=== PATIENT | female | born 1975 | race Caucasian/White ===

== ENCOUNTER 2016-08-09 06:46 | Day surgery (SDC) | payer BC ==
[~2016-08-09 06:46] MED LIST: Lactated Ringers 1,000 ML IV SCH; Lidocaine 1%/Sod Bicarbonate in NS 8.4% 1 ML Syringe IV PRN; Sodium Chloride 0.9% 10 ML Syringe FLUSH PRN
[2016-08-09] MEDS ORDERED: Bupivacaine 0.5% 30 ML SDV ONE (07:03)
--- NOTE | 2016-08-09 07:25 | PCM.PREANE ---
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 symptoms Respiratory: Reports: no symptoms Cardiovascular: Reports: no symptoms GI: Reports: no symptoms Other: Reports: none - PHYSICAL ASSESSMENT HR: 73 O2 Sat by Pulse Oximetry: 96 RR: 16 BP: 108/77 Temp: 36.6 C Height: 1.63 m Weight: 58.513 kg NPO Status Date: 08/08/16 NPO Status Time: 00:00 ASA Class: 2 Mental Status: alert & oriented x3 Airway Class: Mallampati = 1 Dentition: Reports: normal dentition Thyro-Mental Finger Breadths: 3 Mouth Opening Finger Breadths: 3 ROM/Head Extension: full Respiratory Status: lungs clear to auscultation bilaterally Cardiovascular Status: regular rate & rhythm, normal S1, S2, no murmur, blood pressure WNL - ALLERGIES Allergies/Adverse Reactions: Allergies Allergy/AdvReac Type Severity Reaction Status Date / Time Penicillins Allergy Intermediate Hives Verified 08/06/16 14:14 Sulfa (Sulfonamide Allergy Intermediate Hives Verified 08/06/16 14:14 Antibiotics) hydrocodone AdvReac Chest Verified 08/06/16 14:14 Presssure - BLOOD Blood Available: Yes Product(s) Available: PRBC - ANESTHESIA PLAN Preop Beta Dwight: No Anesthesia Type Planned: general anesthesia - ACKNOWLEDGEMENTS Pt an appropriate candidate for the planned anesthesia: Yes Alternatives and risks of anesthesia discussed w pt/guardian: Yes Pt/Guardian understands and agree with anesthesia plan: Yes PreAnesthesia Questionnaire - Past Health History Medical/Surgical History: Denies Medical/Surgical History HEENT History: Reports: Impaired vision Other HEENT History: wears eye glasses Other Cardiovascular History: mitral valve prolapse Respiratory History: Reports: None Gastrointestinal History: Reports: Other (see below) Other Gastrointestinal History: occassional constipation Genitourinary History: Reports: None, Other (see below) Other Genitourinary History: hesitency of micturation, pelvic pain 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 History: Reports: Endometriosis, Musculoskeletal History: Reports: None Neurological History: Reports: Migraines Psychiatric History: Reports: Anxiety, Depression, Emotional problems Endocrine/Metabolic History: Reports: None Hematologic History: Reports: None Immunologic History: Reports: None Oncologic (Cancer) History: Reports: None Dermatologic History: Reports: None - Infectious Disease History Infectious Disease History: Reports: Extended spectrum beta-lactamase (ESBL) - Past Surgical History Head Surgeries/Procedures: Reports: None HEENT Surgical History: Reports: Naso-sinus surgery GI Surgical History: Reports: Cholecystectomy, Colonoscopy Female Surgical History: Reports: Breast implant, Hysterectomy Other Female Surgeries/Procedures: laparoscopy x 23 Neurological Surgical History: Reports: Other (see below) Other Neurological Surgeries/Procedures: botox injections for migraine Musculoskeletal Surgical History: Reports: Arthroscopic knee - SUBSTANCE USE Smoking Status *Q: Current Every Day Smoker Tobacco Use Within Last Twelve Months: Cigarettes Second Hand Smoke Exposure: No Days Per Week of Alcohol Use: 0 Number of Drinks Per Day: 2 Total Drinks Per Week: 0 Recreational Drug Use History: No - HOME MEDS Home Medications: Home Meds Naproxen [Naprosyn] 500 mg PO BID PRN 12/11/14 [History] Venlafaxine [Effexor XR] 150 mg PO QPM 12/11/14 [History] Venlafaxine [Effexor XR] 75 mg PO DAILY 04/08/15 [History] HYDROmorphone HCl [Dilaudid] 3 mg RECTAL DAILY PRN 09/26/15 [History] Ketorolac [Toradol] 30 mg IM Q6H PRN 09/26/15 [History] Estrogens, Conjugated [Premarin] 1 tab PO BID 03/11/16 [History] Gabapentin [Neurontin] 600 mg PO BEDTIME 03/11/16 [History] Acetaminophen with Codeine [Tylenol with Codeine #3 Tablet] 1 tab PO Q8H PRN 08/20 [History] Colestipol [Colestipol HCl] 1 g PO ASDIRECTED PRN 08/06/16 [History] Ondansetron [Zofran ODT] 8 mg PO Q6H PRN 08/06/16 [History] - CURRENT (IN HOUSE) MEDS Current Meds: Current Medications Lactated Ringer's (Ringers, Lactated) 1,000 mls @ 125 mls/hr IV ASDIRECTED SHIVAM Stop: 08/09/16 23:00 Lidocaine/Sodium Bicarbonate (Buffered Lidocaine 1% In Ns 8.4%) 0.25 ml IV ONETIME PRN PRN Reason: Prior to IV Start Stop: 08/09/16 18:00 Sodium Chloride (Saline Flush) 10 ml FLUSH ASDIRECTED PRN PRN Reason: Keep Vein Open Stop: 08/09/16 18:00 Discontinued Medications Bupivacaine HCl (Marcaine 0.5%) Confirm Administered Dose 30 ml .ROUTE .STK-MED ONE Stop: 08/09/16 07:04
[2016-08-09] MEDS ORDERED: Rocuronium 50 MG/5 ML Vial ONE (07:34)
[2016-08-09] MEDS ORDERED: Propofol 200 MG/20 ML SDV ONE (07:34)
[2016-08-09] MEDS ORDERED: Midazolam 1 MG/ML 2 ML SDV ONE (07:34)
[2016-08-09] MEDS ORDERED: Ondansetron 4 MG/2 ML SDV ONE (07:34)
[2016-08-09] MEDS ORDERED: fentaNYL 250 MCG/5 ML SDV ONE (07:34)
[2016-08-09] MEDS ORDERED: ceFAZolin 1 GM Vial ONE (07:37)
[2016-08-09] MEDS ORDERED: diphenhydrAMINE 50 MG/ML SDV ONE (08:14)
[2016-08-09] MEDS ORDERED: Dexamethasone 4 MG/ML 5 ML MDV ONE (08:14)
[2016-08-09] MEDS ORDERED: Lactated Ringers 1,000 ML ONE (08:16)
--- NOTE | 2016-08-09 09:07 | PCM.POSTAN ---
POST ANESTHESIA ASSESSMENT - MENTAL STATUS Mental Status: somnolent - VITAL SIGNS Pulse Rate: 81 SaO2: 98 Resp Rate: 11 Blood Pressure: 135/80 Temperature: 36.4 C - RESPIRATORY Respiratory Status: respiratory rate WNL, airway patent, O2 saturation stable - CARDIOVASCULAR CV Status: pulse rate WNL, blood pressure stable - GASTROINTESTINAL GI Status: no symptoms - PAIN Pain Score: 0 - POST OP HYDRATION Hydration Status: adequate & stable - OBSERVATIONS Free Text/Narrative:: no anesthesia complications noted
[2016-08-09] MEDS ORDERED: Ketorolac 30 MG/ML SDV IVPUSH PRN (09:08)
--- NOTE | 2016-08-09 09:08 | PCM.OPNOTE ---
- General Post-Op/Procedure Note Date of Surgery/Procedure: 08/09/16 Operative Procedure(s): laparoscopy with peroneal biopsy and removal of left adnexal cystic mass [id number] Pre Op Diagnosis: pelvic pain, left lower quadrant pain Post-Op Diagnosis: Same plus endometriosis of the peritoneum. Posterior cul-de- sac. One spot removed with biopsy and left pelvic mass cystic. Path report pending appeared benign Anesthesia Technique: General ET tube Primary Surgeon: John Cruz Secondary Surgeon: José Antonio Kelley Anesthesia Provider: Hua Bourne Fluid Replacement, Intraop: 1,500 Output, Urine Amount: 30 EBL in mLs: 5 Drain/Tube Comments:: none Complications: None Condition: Good Free Text/Narrative:: patient was transferred operating room in the medical office building [facility] under general anesthesia with endotracheal intubation. Low dorsal lithotomy position. Prepared and draped in sterile fashion. SCDs in place functioning prior surgery and 2 g of Ancef given. Timeout performed confirming patient's name, date of , and procedures laparoscopy, possible laparotomy. Examination under anesthesia revealed a left adnexal mass, approximately 2 x 2 centimeters Gutierres catheter placed, and sponge stick, placed in the vagina for manipulation if needed. Patient had had. Prior hysterectomy, and removal of both tubes and ovaries open laparoscopy was performed. History of multiple previous laparoscopies injecting promptly 3 mL. At the umbilicus. A midline incision was made. Anterior fascia. Grasp incised, the peritoneal cavity was entered without difficulty. There were no massive adhesions. The Green 12 mm cannula introduced and secured in place with 0 PDS. Prompt visualization. Pelvic organs was accomplished, and additional 5 mm port made at the suprapubic area injecting approximately 2 mL, and, incising, 5 mL in the old scar and a right sided incision 5 mm made after transillumination injecting 2 mL of 0.5% Marcaine as with the previous. Injection sites, and the 5 mm port was placed. The pelvis was examined. There was one small spot, suspected endometriosis, and this was biopsied and removed. There was a cystic mass. The left side, measure proximal, and 2 x 2 centimeters, clear the mucus filled. This was grasped, elevated, and utilizing the LigaSure crossclamping activated, and, incising, the mass was removed. A piece of Interceed was placed over this area to hopefully prevent adhesion formation. Sponge, needle, pack, and splint sharp count correct, x2. Hemostasis was normal no bleeding the pneumoperitoneum was reduced and the umbilical incision and midline and right sided. Incision were closed with 3-0 Monocryl, Dermabond applied sponge stick removed from the vagina. The Gutierres catheter was removed. Patient transported post anesthesia care unit in satisfactory condition. No blood transfusions were required. One set of pictures taken total of 8 images image 001, shows the cystic mass with some adhesions on the left side, image, 002, shows, again, a cystic mass just beneath the grasper image 003, shows the mass on traction image, 004, shows the area of endometriosis, which was biopsy, and removed image, 005, shows normal. Appendix, image, 006, shows normal. Liver and gallbladder image , 007, shows the right sided pelvic wall with no masses. Image 008 just left of center of the previous image, shows a spot, which was biopsied and removed in entirety
[2016-08-09] MEDS ORDERED: Labetalol 100 MG/20 ML MDV ONE (09:35)
[2016-08-09] MEDS: fentaNYL 100 MCG/2 ML SDV IVPUSH PRN ×2 (10:00→10:10)
[2016-08-09] MEDS ORDERED: HYDROmorphone 0.5 MG/0.5 ML Syringe IVPUSH PRN (10:15)
[2016-08-09] MEDS ORDERED: Acetaminophen/oxyCODONE 325-5 MG Tab PO ONE ×2 (11:45→12:50)
[2016-08-09 12:05] VITALS: BP 103/59
== END 2016-08-09 12:33 | disposition home or self-care (01) ==
LOC: JD.SDS 06:46
PROVIDERS: ATTEND Obstetrics & Gynecology
PROC: 0UB64ZZ Excision of Left Fallopian Tube, Percutaneous Endoscopic Approach (ICD-10-PCS; principal; 2016-08-09)
DX: R10.2 Pelvic and perineal pain (principal); N95.1 Menopausal and female climacteric states; R10.32 Left lower quadrant pain; F17.210 Nicotine dependence, cigarettes, uncomplicated; F41.8 Other specified anxiety disorders; N80.3 Endometriosis of pelvic peritoneum; N83.8 Other noninflammatory disorders of ovary, fallopian tube and broad ligament
CPT/HCPCS: 36415; 58662; 85025; 86850; 86900; 86901; 88305; A9270; C1765; J0690; J1100; J1200; J1885; J2250; J2405; J3010; J7120; 00840; J2704

== ENCOUNTER 2016-08-20 16:20 | Emergency (ER) | payer BC ==
--- NOTE | 2016-08-20 16:52 | EDM.PDOC ---
ED HPI Skin/Rash - General Chief Complaint: Wound Recheck Stated Complaint: INCISION THAT IS LEAKING CAUSING PAIN Time Seen by Provider: 08/20/16 16:52 Source: Reports: Patient - History of Present Illness INITIAL COMMENTS - FREE TEXT/NARRATIVE: Patient had a exploratory laparoscopy for endometriosis and possible cyst by Dr Cruz on 08/11. She is here today as incision is tender and she has been having drainage from this. Denies fever/chills. - Related Data Allergies Allergy/AdvReac Type Severity Reaction Status Date / Time Penicillins Allergy Intermediate Hives Verified 08/20/16 16:45 Sulfa (Sulfonamide Allergy Intermediate Hives Verified 08/20/16 16:45 Antibiotics) hydrocodone AdvReac Chest Verified 08/20/16 16:45 Presssure Home Meds: Ambulatory Orders Medication Instructions Recorded Confirmed Naproxen [Naprosyn] 500 mg PO BID PRN 12/11/14 08/20/16 Venlafaxine [Effexor XR] 150 mg PO QPM 12/11/14 08/20/16 Venlafaxine [Effexor XR] 75 mg PO DAILY 04/08/15 08/20/16 HYDROmorphone HCl [Dilaudid] 3 mg RECTAL DAILY PRN 09/26/15 08/20/16 Ketorolac [Toradol] 30 mg IM Q6H PRN 09/26/15 08/20/16 Gabapentin [Neurontin] 300 mg PO BEDTIME 03/11/16 08/20/16 Acetaminophen with Codeine 1 tab PO Q8H PRN 08/06/16 08/20/16 [Tylenol with Codeine #3 Tablet] Ondansetron [Zofran ODT] 8 mg PO Q6H PRN 08/06/16 08/20/16 oxyCODONE HCl/Acetaminophen 1 each PO Q6H #20 tablet 08/09/16 08/20/16 [Percocet 5-325 mg Tablet] Estradiol 0.5 mg PO BID 08/20/16 08/20/16 Past Medical History - Past Health History Medical/Surgical History: Denies Medical/Surgical History HEENT History: Reports: Impaired vision Other HEENT History: wears eye glasses Other Cardiovascular History: mitral valve prolapse Respiratory History: Reports: None Gastrointestinal History: Reports: Other (see below) Other Gastrointestinal History: occassional constipation Genitourinary History: Reports: None, Other (see below) Other Genitourinary History: hesitency of micturation, pelvic pain 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, Musculoskeletal History: Reports: None Neurological History: Reports: Migraines Psychiatric History: Reports: Anxiety, Depression, Emotional problems Endocrine/Metabolic History: Reports: None Hematologic History: Reports: None Immunologic History: Reports: None Oncologic (Cancer) History: Reports: None Dermatologic History: Reports: None - Infectious Disease History Infectious Disease History: Reports: Extended spectrum beta-lactamase (ESBL) - Past Surgical History Head Surgeries/Procedures: Reports: None HEENT Surgical History: Reports: Naso-sinus surgery GI Surgical History: Reports: Cholecystectomy, Colonoscopy Female Surgical History: Reports: Breast implant, Hysterectomy Other Female Surgeries/Procedures: laparoscopy x 23 Neurological Surgical History: Reports: Other (see below) Other Neurological Surgeries/Procedures: botox injections for migraine Musculoskeletal Surgical History: Reports: Arthroscopic knee Social & Family History - Family History Family Medical History: Noncontributory Cardiac: Reports: Hypertension Neurological: Reports: Migraines - Tobacco Use Smoking Status *Q: Current Every Day Smoker Years of Tobacco use: 20 Packs/Tins Daily: 0.5 Used Tobacco, but Quit: No Month Tobacco Last Used: 8 WEEKS Second Hand Smoke Exposure: No - Caffeine Use Caffeine Use: Reports: Tea - Alcohol Use Days Per Week of Alcohol Use: 0 Number of Drinks Per Day: 2 Total Drinks Per Week: 0 - Recreational Drug Use Recreational Drug Use: No - Living Situation & Occupation Living situation: Reports: , with family ED ROS GENERAL - Review of Systems Review Of Systems: See Below Constitutional: Denies: fever, chills, night sweats Respiratory: Reports: No Symptoms Cardiovascular: Reports: No symptoms Skin: Reports: other (Incision wounds to umbilicus and lower abdomen.) Psychiatric: Reports: No symptoms ED EXAM, SKIN/RASH Exam: See Below Exam Limited By: No limitations General Appearance: alert, WD/WN, no apparent distress Respiratory/Chest: no respiratory distress, lungs clear, normal breath sounds Cardiovascular: normal peripheral pulses, regular rate, rhythm, no murmur GI/Abdominal: normal bowel sounds, soft Neurological: alert, oriented Psychiatric: normal affect, normal mood Skin: Warm, Dry (1 well-healing surgical incision. Surgical incision to umbilicus approximately 0.75 cm with small amount of scabbed serous discharge. Grape-sized palpable mass below incision. No surrouding warmt or erythema. ) Course - Vital Signs Last Recorded V/S: Last Vital Signs Temp 97.4 F 08/20/16 16:41 Pulse 79 08/20/16 16:41 Resp 16 08/20/16 16:41 BP 110/91 H 08/20/16 16:41 Pulse Ox 98 08/20/16 16:41 - Re-Assessments/Exams Free Text/Narrative Re-Assessment/Exam: Small amount of dried serous drainage to surgical incision, no new drainage to culture. No surrounding warmth or erythema. I suspect small palpable mass is seroma. Reassured patient that wound is not infected. 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 She will monitor for fever, redness or warmth and follow-up in ER if needed. 08/20/16 17:42 Departure - Departure Time of Disposition: 17:23 Disposition: Home, Self-Care 01 Condition: good Clinical Impression: Wound drainage Instructions: Wound Care Referrals: Abner Freire MD [Primary Care Provider] - Forms: ED Department Discharge Additional Instructions: You do not have an infection at this time, there is a small collection of fluid under the skin. Your body should take care of this over time. Monitor area for increased redness or warmth, if you should have these or fever >101 F you should be evaluated again. Rest, do not do housework. Minimal activity for a few days but you can walk as tolerated. Keep your scheduled follow-up with Dr Cruz on Tuesday or certainly return to ER if needed.
== END 2016-08-20 17:37 | disposition home or self-care (01) ==
LOC: JD.ED 16:20
CPT/HCPCS: 99281; 99282

== ENCOUNTER 2017-01-29 16:53 | Emergency (ER) | payer BC ==
[2017-01-29 17:13] VITALS: BP 126/84
--- NOTE | 2017-01-29 17:17 | EDM.PDOC ---
ED HPI GENERAL MEDICAL PROBLEM - General Chief Complaint: Upper Extremity Injury/Pain Stated Complaint: RASH ON LT ARM AFTER SURGERY Time Seen by Provider: 01/29/17 17:16 - History of Present Illness INITIAL COMMENTS - FREE TEXT/NARRATIVE: 41-year-old female presents emergency room with left arm discomfort and skin itching underneath her splint. Patient had hand surgery yesterday and has a splint in place. She has developed some itching at the proximal portion of the splint. She has some numbness in her fingers. The patient has some discomfort in her hand as she would describe his typical postoperative pain she just thinks she got a little behind on her pain medication. Left Wrist Pain Score (Numeric/FACES): 8 - Related Data Allergies Allergy/AdvReac Type Severity Reaction Status Date / Time Penicillins Allergy Intermediate Hives Verified 01/29/17 17:08 Sulfa (Sulfonamide Allergy Intermediate Hives Verified 01/29/17 17:08 Antibiotics) hydrocodone AdvReac Chest Verified 01/29/17 17:08 Presssure Home Meds: Home Meds Naproxen [Naprosyn] 500 mg PO BID PRN 12/11/14 [History] Venlafaxine [Effexor XR] 150 mg PO QPM 12/11/14 [History] Venlafaxine [Effexor XR] 75 mg PO DAILY 04/08/15 [History] HYDROmorphone HCl [Dilaudid] 3 mg RECTAL DAILY PRN 09/26/15 [History] Ketorolac [Toradol] 30 mg IM Q6H PRN 09/26/15 [History] Gabapentin [Neurontin] 600 mg PO BEDTIME 03/11/16 [History] Acetaminophen with Codeine [Tylenol with Codeine #3 Tablet] 1 tab PO Q8H PRN 08/20 [History] Ondansetron [Zofran ODT] 8 mg PO Q6H PRN 08/06/16 [History] oxyCODONE HCl/Acetaminophen [Percocet 5-325 mg Tablet] 1 each PO Q6H #20 tablet 08/09/16 [Rx] Estradiol 0.5 mg PO BID 08/20/16 [History] Past Medical History - Past Health History Medical/Surgical History: Denies Medical/Surgical History HEENT History: Reports: Impaired Vision Other HEENT History: wears eye glasses Other Cardiovascular History: mitral valve prolapse Respiratory History: Reports: None Gastrointestinal History: Reports: Other (See Below) Other Gastrointestinal History: occassional constipation Genitourinary History: Reports: None Other Genitourinary History: hesitency of micturation, pelvic pain 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, Musculoskeletal History: Reports: None Neurological History: Reports: Migraines Psychiatric History: Reports: Anxiety, Depression, Emotional Problems Endocrine/Metabolic History: Reports: None Hematologic History: Reports: None Immunologic History: Reports: None Oncologic (Cancer) History: Reports: None Dermatologic History: Reports: None - Infectious Disease History 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) - Past Surgical History Head Surgeries/Procedures: Reports: None HEENT Surgical History: Reports: Naso-Sinus Surgery Female Surgical History: Reports: Breast Implant, Hysterectomy Musculoskeletal Surgical History: Reports: Arthroscopic Knee, Other (See Below) Other Musculoskeletal Surgeries/Procedures:: ganglion cyst removed Social & Family History - Family History Family Medical History: Noncontributory Cardiac: Reports: Hypertension Neurological: Reports: Migraines - Tobacco Use Smoking Status *Q: Current Every Day Smoker Years of Tobacco use: 20 Packs/Tins Daily: 0.5 Used Tobacco, but Quit: No Month Tobacco Last Used: 8 WEEKS Second Hand Smoke Exposure: No - Caffeine Use Caffeine Use: Reports: Coffee, Soda, Tea - Alcohol Use Days Per Week of Alcohol Use: 0 Number of Drinks Per Day: 2 Total Drinks Per Week: 0 - Recreational Drug Use Recreational Drug Use: No - Living Situation & Occupation Living situation: Reports: , with Family Review of Systems - Review of Systems Review Of Systems: See Below Constitutional: Reports: No Symptoms. Denies: Chills, Fever Respiratory: Reports: No Symptoms Cardiovascular: Reports: No Symptoms GI/Abdominal: Reports: No Symptoms ED EXAM, GENERAL - Physical Exam Exam: See Below Exam Limited By: No Limitations General Appearance: Alert, No Apparent Distress Respiratory/Chest: No Respiratory Distress, Lungs Clear, Normal Breath Sounds Cardiovascular: Regular Rate, Rhythm, No Edema, No Murmur Extremities: Other (Semination the left hand shows swelling of the digits. The proximal portion of her splint more proximal than the hard portion splint is of coban this is digging into her skin this is gently loosened. The patient is advised to keep her hand above her head she did this for 10-15 minutes. The swelling in her fingers improved significantly and her pain got a lot better and the itching is now gone.) Course - Vital Signs Last Recorded V/S: Last Vital Signs Temp 36.9 C 01/29/17 17:08 Pulse 73 01/29/17 17:08 Resp 12 01/29/17 17:08 BP 126/84 01/29/17 17:08 Pulse Ox 97 01/29/17 17:08 Departure - Departure Time of Disposition: 18:42 Disposition: Home, Self-Care 01 Clinical Impression: Left arm swelling - Discharge Information Referrals: Abner Freire MD [Primary Care Provider] - Forms: ED Department Discharge Additional Instructions: Return to the emergency room with any questions problems or worsening symptoms. Keep your arm elevated as much as tolerated. Follow-up with your surgeon on Tuesday on the phone. Take your meds as directed
== END 2017-01-29 19:14 | disposition home or self-care (01) ==
LOC: JD.ED 16:53
DX: M79.89 Other specified soft tissue disorders (principal); F17.210 Nicotine dependence, cigarettes, uncomplicated; F32.9 Major depressive disorder, single episode, unspecified; Z90.710 Acquired absence of both cervix and uterus; Z98.890 Other specified postprocedural states; Z98.82 Breast implant status; Z79.899 Other long term (current) drug therapy; Z88.0 Allergy status to penicillin; Z88.2 Allergy status to sulfonamides; Z88.5 Allergy status to narcotic agent
CPT/HCPCS: 99282; 99283

== ENCOUNTER 2017-01-31 10:11 | Emergency (ER) | payer BC ==
[2017-01-31 10:25] VITALS: BP 120/80
--- NOTE | 2017-01-31 11:04 | EDM.PDOC ---
ED HPI GENERAL MEDICAL PROBLEM - General Chief Complaint: Allergic Reaction Stated Complaint: POST OP ISSUES -LEFT ARM Time Seen by Provider: 01/31/17 10:36 Source of Information: Reports: Patient, RN Notes Reviewed - History of Present Illness INITIAL COMMENTS - FREE TEXT/NARRATIVE: 41-year-old lady comes in with rash and itchiness of her left forearm, neck as well as slight itchiness of her bilateral lower extremities. She did have a ganglion cyst removed 3 days ago. She does have a splint on. Been taking hydrocodone for pain. She states the hydrocodone has not been "giving her adequate pain relief". Not on any other new medication. Left Wrist Pain Score (Numeric/FACES): 8 - Related Data Allergies Allergy/AdvReac Type Severity Reaction Status Date / Time Penicillins Allergy Intermediate Hives Verified 01/31/17 10:20 Sulfa (Sulfonamide Allergy Intermediate Hives Verified 01/31/17 10:20 Antibiotics) hydrocodone AdvReac Chest Verified 01/31/17 10:20 Presssure Home Meds: Home Meds Naproxen [Naprosyn] 500 mg PO BID PRN 12/11/14 [History] Venlafaxine [Effexor XR] 150 mg PO QPM 12/11/14 [History] Venlafaxine [Effexor XR] 75 mg PO DAILY 04/08/15 [History] HYDROmorphone HCl [Dilaudid] 3 mg RECTAL DAILY PRN 09/26/15 [History] Ketorolac [Toradol] 30 mg IM Q6H PRN 09/26/15 [History] Gabapentin [Neurontin] 600 mg PO BEDTIME 03/11/16 [History] Acetaminophen with Codeine [Tylenol with Codeine #3 Tablet] 1 tab PO Q8H PRN 08/20 [History] Ondansetron [Zofran ODT] 8 mg PO Q6H PRN 08/06/16 [History] oxyCODONE HCl/Acetaminophen [Percocet 5-325 mg Tablet] 1 each PO Q6H #20 tablet 08/09/16 [Rx] Estradiol 0.5 mg PO BID 08/20/16 [History] oxyCODONE HCl/Acetaminophen [Percocet 5-325 mg Tablet] 1 each PO Q6HR PRN #14 tablet 01/31/17 [Rx] Past Medical History - Past Health History Medical/Surgical History: Denies Medical/Surgical History HEENT History: Reports: Impaired Vision Other HEENT History: wears eye glasses Other Cardiovascular History: mitral valve prolapse Respiratory History: Reports: None Gastrointestinal History: Reports: Other (See Below) Other Gastrointestinal History: occassional constipation Genitourinary History: Reports: None Other Genitourinary History: hesitency of micturation, pelvic pain 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: Endometriosis, Musculoskeletal History: Reports: None Neurological History: Reports: Migraines Psychiatric History: Reports: Anxiety, Depression, Emotional Problems Endocrine/Metabolic History: Reports: None Hematologic History: Reports: None Immunologic History: Reports: None Oncologic (Cancer) History: Reports: None Dermatologic History: Reports: None - Infectious Disease History 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) - Past Surgical History Head Surgeries/Procedures: Reports: None HEENT Surgical History: Reports: Naso-Sinus Surgery Female Surgical History: Reports: Breast Implant, Hysterectomy Musculoskeletal Surgical History: Reports: Arthroscopic Knee, Other (See Below) Other Musculoskeletal Surgeries/Procedures:: ganglion cyst removed Social & Family History - Family History Family Medical History: Noncontributory Cardiac: Reports: Hypertension Neurological: Reports: Migraines - Tobacco Use Smoking Status *Q: Current Every Day Smoker Years of Tobacco use: 20 Packs/Tins Daily: 0.5 Used Tobacco, but Quit: No Month Tobacco Last Used: 8 WEEKS Second Hand Smoke Exposure: No - Caffeine Use Caffeine Use: Reports: Coffee, Soda, Tea - Alcohol Use Days Per Week of Alcohol Use: 0 Number of Drinks Per Day: 2 Total Drinks Per Week: 0 - Recreational Drug Use Recreational Drug Use: No - Living Situation & Occupation Living situation: Reports: , with Family ED ROS ALLERGIC REACTION - Review of Systems Review Of Systems: See Below Constitutional: Denies: Fever, Chills HEENT: Denies: Throat Pain Respiratory: Denies: Shortness of Breath Cardiovascular: Denies: Chest Pain GI/Abdominal: Denies: Abdominal Pain, Nausea, Vomiting Musculoskeletal: Reports: Joint Pain (Left wrist) Skin: Reports: Rash Neurological: Denies: Numbness, Tingling ED EXAM GENERAL NO PERIP PULSE - Physical Exam Exam: See Below General Appearance: Alert, No Apparent Distress Throat/Mouth: Normal Inspection, Normal Oropharynx Head: Atraumatic. No: Facial Swelling Neck: Supple Respiratory/Chest: No Respiratory Distress, Lungs Clear, Normal Breath Sounds Cardiovascular: Regular Rate, Rhythm Extremities: Other (Wearing a fiberglass splint with cotton padding, coban wrap left wrist.) Neurological: Alert, Oriented, No Motor/Sensory Deficits Skin Exam: Warm, Dry, Rash (There is mild rash visible left forearm and also left anterior neck, no generalized hives or you.) Course - Vital Signs Last Recorded V/S: Last Vital Signs Temp 98 F 01/31/17 10:20 Pulse 78 01/31/17 10:20 Resp 16 01/31/17 10:20 BP 120/80 01/31/17 10:20 Pulse Ox 97 01/31/17 10:20 - Re-Assessments/Exams Free Text/Narrative Re-Assessment/Exam: 01/31/17 11:12 The coban has been taken off in case she is reacting to that, she is wondering if she may be reacting to the hydrocodone, states that is not been giving her very good pain relief, will switch her over to Percocet. Discharge instructions as documented Departure - Departure Time of Disposition: 10:52 Disposition: Home, Self-Care 01 Condition: Fair Clinical Impression: Skin rash Wrist pain Qualifiers: Laterality: left Qualified Code(s): M25.532 - Pain in left wrist - Discharge Information Prescriptions: oxyCODONE HCl/Acetaminophen [Percocet 5-325 mg Tablet] 1 each PO Q6HR PRN #14 tablet PRN Reason: Pain Instructions: Rash, [id number], Wrist Pain Referrals: Abner Freire MD [Primary Care Provider] - Forms: ED Department Discharge Additional Instructions: Continue with wrist splint as previously advised, stop the hydrocodone, Percocet if needed for severe pain, Tylenol for mild to moderate discomfort do not take Tylenol and Percocet at the same time. Continue Benadryl for the next day or 2 and then switch over to Claritin which will be less sedating. The dosage for Claritin is 10 mg once daily.
== END 2017-01-31 11:10 | disposition home or self-care (01) ==
LOC: JD.ED 10:11
DX: R21 Rash and other nonspecific skin eruption (principal); M25.532 Pain in left wrist; F17.210 Nicotine dependence, cigarettes, uncomplicated; Z88.0 Allergy status to penicillin; Z88.2 Allergy status to sulfonamides; Z88.5 Allergy status to narcotic agent; Z79.899 Other long term (current) drug therapy; Z90.710 Acquired absence of both cervix and uterus
CPT/HCPCS: 99282

== ENCOUNTER 2017-05-20 14:38 | Emergency (ER) | payer BC ==
[2017-05-20 14:58] VITALS: BP 151/97
[2017-05-20] MEDS ORDERED: Cyclobenzaprine 10 MG Tab PO ONE (15:31)
--- NOTE | 2017-05-20 15:34 | EDM.PDOC ---
ED HPI GENERAL MEDICAL PROBLEM - General Chief Complaint: Neck Problem Stated Complaint: NECK PAIN Time Seen by Provider: 05/20/17 15:13 Source of Information: Reports: Patient History Limitations: Reports: No Limitations - History of Present Illness INITIAL COMMENTS - FREE TEXT/NARRATIVE: The patient is a 41-year-old female with a chief complaint of right-sided neck pain. She states she's had it for 2 weeks. No injury. The pain is located in the right sided lower neck and radiates down the right arm. Pain is sharp. Worse with head movements. Not related to arm movements. She occasionally has some numbness and tingling that goes down to her fingers. No prior history of similar symptoms. She's been taking Aleve for pain and using heat packs with no relief. She is already on gabapentin. She gets Botox injections for migraine headaches and thought that would help but she did not notice a change after this. She has not seen her primary care provider for this problem. Neck Pain Score (Numeric/FACES): 7 - Related Data Allergies Allergy/AdvReac Type Severity Reaction Status Date / Time Penicillins Allergy Intermediate Hives Verified 01/31/17 10:20 Sulfa (Sulfonamide Allergy Intermediate Hives Verified 01/31/17 10:20 Antibiotics) hydrocodone AdvReac Chest Verified 01/31/17 10:20 Presssure Home Meds: Home Meds Naproxen [Naprosyn] 500 mg PO BID PRN 12/11/14 [History] Venlafaxine [Effexor XR] 150 mg PO QPM 12/11/14 [History] Venlafaxine [Effexor XR] 75 mg PO DAILY 04/08/15 [History] HYDROmorphone HCl [Dilaudid] 3 mg RECTAL DAILY PRN 09/26/15 [History] Ketorolac [Toradol] 30 mg IM Q6H PRN 09/26/15 [History] Gabapentin [Neurontin] 600 mg PO BEDTIME 03/11/16 [History] Acetaminophen with Codeine [Tylenol with Codeine #3 Tablet] 1 tab PO Q8H PRN 08/20 [History] Ondansetron [Zofran ODT] 8 mg PO Q6H PRN 08/06/16 [History] oxyCODONE HCl/Acetaminophen [Percocet 5-325 mg Tablet] 1 each PO Q6H #20 tablet 08/09/16 [Rx] Estradiol 0.5 mg PO BID 08/20/16 [History] oxyCODONE HCl/Acetaminophen [Percocet 5-325 mg Tablet] 1 each PO Q6HR PRN #14 tablet 01/31/17 [Rx] Cyclobenzaprine [Flexeril] 10 mg PO BID PRN #15 tablet 05/20/17 [Rx] Past Medical History - Past Health History Medical/Surgical History: Denies Medical/Surgical History HEENT History: Reports: Impaired Vision Other HEENT History: wears eye glasses Other Cardiovascular History: mitral valve prolapse Respiratory History: Reports: None Gastrointestinal History: Reports: Other (See Below) Other Gastrointestinal History: occassional constipation Genitourinary History: Reports: None Other Genitourinary History: hesitency of micturation, pelvic pain 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, Musculoskeletal History: Reports: None Neurological History: Reports: Migraines Psychiatric History: Reports: Anxiety, Depression, Emotional Problems Endocrine/Metabolic History: Reports: None Hematologic History: Reports: None Immunologic History: Reports: None Oncologic (Cancer) History: Reports: None Dermatologic History: Reports: None - Infectious Disease History 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) - Past Surgical History Head Surgeries/Procedures: Reports: None HEENT Surgical History: Reports: Naso-Sinus Surgery Female Surgical History: Reports: Breast Implant, Hysterectomy Musculoskeletal Surgical History: Reports: Arthroscopic Knee, Other (See Below) Other Musculoskeletal Surgeries/Procedures:: ganglion cyst removed Social & Family History - Family History Family Medical History: Noncontributory Cardiac: Reports: Hypertension Neurological: Reports: Migraines - Tobacco Use Smoking Status *Q: Current Some Day Smoker Years of Tobacco use: 20 Packs/Tins Daily: 0.5 Used Tobacco, but Quit: No Month Tobacco Last Used: 8 WEEKS Second Hand Smoke Exposure: No - Caffeine Use Caffeine Use: Reports: Soda, Tea - Alcohol Use Days Per Week of Alcohol Use: 0 Number of Drinks Per Day: 2 Total Drinks Per Week: 0 - Recreational Drug Use Recreational Drug Use: No - Living Situation & Occupation Living situation: Reports: , with Family ED ROS GENERAL - Review of Systems Review Of Systems: See Below Constitutional: Reports: No Symptoms HEENT: Reports: No Symptoms Respiratory: Reports: No Symptoms Musculoskeletal: Reports: Neck Pain Neurological: Reports: Paresthesia ED EXAM, UPPER BACK/NECK PAIN - Physical Exam Exam: See Below Exam Limited By: No Limitations General Appearance: Alert, WD/WN, No Apparent Distress Eye Exam: Bilateral Eye: Normal Inspection Ears Exam: Normal External Exam Nose Exam: Normal Inspection Throat/Mouth Exam: Normal Inspection, Normal Voice Head Exam: Atraumatic, Normocephalic Neck Exam: Normal Alignment, Normal Inspection, Other (Mild diffuse midline tenderness no step-offs or deformities, skin normal throughout, tenderness is most prominent in the right sided paracervical musculature. No swelling or deformity. Full range of motion. Not reproducible with arm movements.) Cardiovascular/Respiratory: No Respiratory Distress Extremities: Normal Inspection Neurologic: No Motor/Sensory Deficits, Normal Mood/Affect, Oriented x 3 Psychiatric: Normal Affect, Normal Mood Skin Exam: Normal Color, Warm/Dry Course - Vital Signs Last Recorded V/S: Last Vital Signs Temp 36.0 C 05/20/17 14:56 Pulse 80 05/20/17 14:56 Resp 20 05/20/17 14:56 BP 151/97 H 05/20/17 14:56 Pulse Ox 98 05/20/17 14:56 - Orders/Labs/Meds Meds: Medications Discontinued Medications Generic Name Dose Route Start Last Admin Trade Name Freq PRN Reason Stop Dose Admin Cyclobenzaprine HCl 10 mg 05/20/17 15:31 Flexeril PO 05/20/17 15:32 ONETIME ONE - Re-Assessments/Exams Free Text/Narrative Re-Assessment/Exam: 05/20/17 15:48 Consistent with cervical radiculopathy. No trauma or concern for infection, no indication for imaging here today. Encouraged her to follow up with her primary doctor who may consider referral for MRI if her symptoms persist or worsen. Departure - Departure Time of Disposition: 15:31 Disposition: Home, Self-Care 01 Clinical Impression: Cervical radiculopathy - Discharge Information Prescriptions: Cyclobenzaprine [Flexeril] 10 mg PO BID PRN #15 tablet PRN Reason: Muscle Spasm Instructions: Cervical Radiculopathy, [id number] Referrals: Ghazal Macdonald NP [Primary Care Provider] - Forms: ED Department Discharge Additional Instructions: 1. Continue to use heating pads and take aleve as needed for pain 2. Take cyclobenzaprine as needed for muscle relaxation 3. Follow up with your primary care provider next week for further care. Your primary care provider can consider referral for physical therapy and possibly an MRI if you're not improving and she feels it's appropriate.
== END 2017-05-20 15:50 | disposition home or self-care (01) ==
LOC: JD.ED 14:38
DX: M54.12 Radiculopathy, cervical region (principal); F17.210 Nicotine dependence, cigarettes, uncomplicated; Z79.899 Other long term (current) drug therapy; Z88.0 Allergy status to penicillin; Z88.2 Allergy status to sulfonamides; Z88.6 Allergy status to analgesic agent
CPT/HCPCS: 99283; A9270

== ENCOUNTER 2017-07-25 11:23 | Emergency (ER) | payer BC ==
[2017-07-25 11:36] VITALS: BP 144/95
[2017-07-25] MEDS ORDERED: Ketorolac 30 MG/ML SDV IVPUSH ONE (12:14)
[2017-07-25] MEDS ORDERED: Sodium Chloride 0.9% 10 ML Syringe FLUSH PRN (12:14)
--- NOTE | 2017-07-25 12:26 | EDM.PDOC ---
ED HPI GENERAL MEDICAL PROBLEM - General Chief Complaint: Upper Extremity Injury/Pain Stated Complaint: RT ARM PAIN Time Seen by Provider: 07/25/17 12:01 Source of Information: Reports: Patient History Limitations: Reports: No Limitations - History of Present Illness INITIAL COMMENTS - FREE TEXT/NARRATIVE: 41-year-old female presents for evaluation anf treatment of neck pain radiating into her right arm. Patient had neck surgery with Dr. Salomon's on July 19 [place]. She states that she did well postop. Last night and this morning she states developed a twitching sensation. She is now having severe pain radiating from her neck down into her right arm. Reports some numbness and tingling in the thumb but states this has been present since her surgery. Reports significant pain to the right shoulder. No fevers, nausea, vomiting, shortness of breath or throat swelling. She is currently on hydrocodone 103 25 one tab every 4 hours and cyclobenzaprine up to 3 times a day. she reports these are not relieving her pain. Reports that she's contacted Dr. Salomon's office but he is out for the day. She then spoke with the on-call neurosurgeon who instructed her to come to the ER. Right Arm Pain Score (Numeric/FACES): 9 - Related Data Allergies Allergy/AdvReac Type Severity Reaction Status Date / Time Penicillins Allergy Intermediate Hives Verified 07/25/17 11:32 Sulfa (Sulfonamide Allergy Intermediate Hives Verified 07/25/17 11:32 Antibiotics) hydrocodone AdvReac Chest Verified 07/25/17 11:32 Presssure Home Meds: Home Meds Naproxen [Naprosyn] 500 mg PO BID PRN 12/11/14 [History] Venlafaxine [Effexor XR] 150 mg PO QPM 12/11/14 [History] Venlafaxine [Effexor XR] 75 mg PO DAILY 04/08/15 [History] HYDROmorphone HCl [Dilaudid] 3 mg RECTAL DAILY PRN 09/26/15 [History] Ketorolac [Toradol] 30 mg IM Q6H PRN 09/26/15 [History] Gabapentin [Neurontin] 600 mg PO BEDTIME 03/11/16 [History] Acetaminophen with Codeine [Tylenol with Codeine #3 Tablet] 1 tab PO Q8H PRN 08/20 [History] Ondansetron [Zofran ODT] 8 mg PO Q6H PRN 08/06/16 [History] oxyCODONE HCl/Acetaminophen [Percocet 5-325 mg Tablet] 1 each PO Q6H #20 tablet 08/09/16 [Rx] Estradiol 0.5 mg PO BID 08/20/16 [History] oxyCODONE HCl/Acetaminophen [Percocet 5-325 mg Tablet] 1 each PO Q6HR PRN #14 tablet 01/31/17 [Rx] Cyclobenzaprine [Flexeril] 10 mg PO BID PRN #15 tablet 05/20/17 [Rx] Past Medical History - Past Health History Medical/Surgical History: Denies Medical/Surgical History HEENT History: Reports: Impaired Vision Other HEENT History: wears eye glasses Other Cardiovascular History: mitral valve prolapse Respiratory History: Reports: None Gastrointestinal History: Reports: Other (See Below) Other Gastrointestinal History: occassional constipation Genitourinary History: Reports: None Other Genitourinary History: hesitency of micturation, pelvic pain 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, Musculoskeletal History: Reports: None Neurological History: Reports: Migraines Psychiatric History: Reports: Anxiety, Depression, Emotional Problems Endocrine/Metabolic History: Reports: None Hematologic History: Reports: None Immunologic History: Reports: None Oncologic (Cancer) History: Reports: None Dermatologic History: Reports: None - Infectious Disease History 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) - Past Surgical History Head Surgeries/Procedures: Reports: None HEENT Surgical History: Reports: Naso-Sinus Surgery Female Surgical History: Reports: Breast Implant, Hysterectomy Musculoskeletal Surgical History: Reports: Arthroscopic Knee, Other (See Below) Other Musculoskeletal Surgeries/Procedures:: ganglion cyst removed Social & Family History - Family History Family Medical History: Noncontributory Cardiac: Reports: Hypertension Neurological: Reports: Migraines - Tobacco Use Smoking Status *Q: Current Some Day Smoker Years of Tobacco use: 20 Packs/Tins Daily: 0.5 Used Tobacco, but Quit: No Month Tobacco Last Used: 8 WEEKS Second Hand Smoke Exposure: No - Caffeine Use Caffeine Use: Reports: Soda, Tea - Alcohol Use Days Per Week of Alcohol Use: 0 Number of Drinks Per Day: 2 Total Drinks Per Week: 0 - Recreational Drug Use Recreational Drug Use: No - Living Situation & Occupation Living situation: Reports: , with Family Course - Vital Signs Last Recorded V/S: Last Vital Signs Temp 36.6 C 07/25/17 11:32 Pulse 90 07/25/17 11:32 Resp 16 07/25/17 11:32 BP 144/95 H 07/25/17 11:32 Pulse Ox 97 07/25/17 11:32 - Orders/Labs/Meds Orders: Active Orders 24 hr Category Date Time Status Peripheral IV Care [RC] . DIRECTED Care 07/25/17 12:16 Active Peripheral IV Insertion Adult [OM.PC] Routine Oth 07/25/17 12:14 Ordered Labs: Laboratory Tests 07/25/17 07/25/17 Range/Units 12:35 12:35 WBC 4.82 (3.98-10.04) K/mm3 RBC 3.68 L (3.98-5.22) M/mm3 Hgb 12.3 (11.2-15.7) gm/L Hct 36.7 (34.1-44.9) % MCV 99.7 H (79.4-94.8) fl MCH 33.4 H (25.6-32.2) pg MCHC 33.5 (32.2-35.5) g/dl RDW Std Deviation 46.4 H (36.4-46.3) fL Plt Count 176 L (182-369) K/mm3 MPV 9.2 L (9.4-12.3) fl Neutrophils % (Manual) 55 (40-60) % Band Neutrophils % 0 (0-10) % Lymphocytes % (Manual) 40 (20-40) % Atypical Lymphs % 0 % Monocytes % (Manual) 5 (2-10) % Eosinophils % (Manual) 0 L (0.7-5.8) % Basophils % (Manual) 0 L (0.1-1.2) Platelet Estimate Adequate Polychromasia 1+ slight Anisocytosis 1+ slight RBC Morph Comment Abnormal Sodium 140 (136-145) mEq/L Potassium 4.3 (3.5-5.1) mEq/L Chloride 104 (98-107) mEq/L Carbon Dioxide 28 (21-32) mEq/L Anion Gap 12.3 (5-15) BUN 8 (7-18) mg/dL Creatinine 0.7 (0.55-1.02) mg/dL Est Cr Clr Drug Dosing 74.43 mL/min Estimated GFR (MDRD) > 60 (>60) mL/min BUN/Creatinine Ratio 11.4 L (14-18) Glucose 90 (74-106) mg/dL Calcium 8.4 L (8.5-10.1) mg/dL Total Bilirubin 0.2 (0.2-1.0) mg/dL AST 26 (15-37) U/L ALT 46 (14-59) U/L Alkaline Phosphatase 101 (46-116) U/L Total Protein 6.6 (6.4-8.2) g/dl Albumin 3.1 L (3.4-5.0) g/dl Globulin 3.5 gm/dL Albumin/Globulin Ratio 0.9 L (1-2) Meds: Medications Discontinued Medications Generic Name Dose Route Start Last Admin Trade Name Freq PRN Reason Stop Dose Admin Hydromorphone HCl 1 mg 07/25/17 13:01 Dilaudid IVPUSH 07/25/17 13:02 ONETIME ONE Iopamidol 80 ml 07/25/17 12:30 07/25/17 12:40 Isovue-300 (61%) IVPUSH 07/25/17 12:31 80 ml ONETIME ONE Administration Ketorolac Tromethamine 30 mg 07/25/17 12:14 07/25/17 12:33 Toradol IVPUSH 07/25/17 12:15 30 mg ONETIME ONE Administration Methylprednisolone Sodium Succinate 60 mg 07/25/17 12:47 07/25/17 13:01 Solu-Medrol IVPUSH 07/25/17 12:48 Not Given ONETIME ONE Morphine Sulfate 4 mg 07/25/17 13:08 07/25/17 13:18 Morphine IVPUSH 07/25/17 13:09 4 mg ONETIME ONE Administration Sodium Chloride 10 ml 07/25/17 12:14 07/25/17 12:41 Saline Flush FLUSH 10 ml ASDIRECTED PRN Administration Keep Vein Open Sodium Chloride 10 ml 07/25/17 12:30 07/25/17 13:02 Saline Flush FLUSH 07/25/17 12:31 10 ml ONETIME ONE Administration - Radiology Interpretation Free Text/Narrative:: CT neck Technique: Multiple axial sections through the neck were obtained. Study obtained from above the external auditory canal inferiorly to the lung apices. Intravenous contrast was utilized. Findings: Previous cervical spine surgery is noted with anterior plate and screws and bone graft being seen at C5-C6. Mild artifact is noted from the orthopedic hardware. There is mild soft tissue thickening seen at and inferior to the level of surgery presumably representing slight postoperative hematoma and soft tissue swelling. No fluid collections are seen at this time to indicate abscess. Visualized upper lungs are clear. Thyroid gland is normal. Parapharyngeal soft tissues are normal. Parotid and submandibular salivary glands are normal. Paranasal sinuses are clear. Impression: 1. Previous surgery at C5-C6. Mild soft tissue thickening slightly at and inferior to this surgical level most likely due to a combination of mild postoperative hematoma and soft tissue swelling. 2. No focal fluid collection is seen to indicate abscess at this time. Other normal findings as described above. - Re-Assessments/Exams Free Text/Narrative Re-Assessment/Exam: 07/25/17 13:53 Patient was searched on the [place] prescription drug registry. She has received 40 prescription from 8 different prescribers within the last year for controlled substances. Most recently she received [place] 10-325#90 on 07-20-17. Departure - Departure Time of Disposition: 14:13 Disposition: Home, Self-Care 01 Condition: Fair Clinical Impression: Post-op pain - Discharge Information Instructions: Pain Relief Preoperatively and Postoperatively Referrals: Ghazal Macdonald NP [Primary Care Provider] - Drew Astorga MD [Consulting Physician] - Forms: ED Department Discharge Additional Instructions: Continue with your current pain medications, ice and heat as needed. Follow up with Dr. Salomon tomorrow. Please return to the ER if your symptoms change or worsen. - My Orders Last 24 Hours: My Active Orders 07/25/17 12:14 Peripheral IV Insertion Adult [OM.PC] Routine 07/25/17 12:16 Peripheral IV Care [RC] . DIRECTED - Assessment/Plan Last 24 Hours: My Active Orders 07/25/17 12:14 Peripheral IV Insertion Adult [OM.PC] Routine 07/25/17 12:16 Peripheral IV Care [RC] . DIRECTED
[2017-07-25] MEDS ORDERED: Iopamidol 612 MG/ML 100 ML Bottle IVPUSH ONE (12:30)
[2017-07-25] MEDS ORDERED: Sodium Chloride 0.9% 10 ML Syringe FLUSH ONE (12:30)
[2017-07-25] MEDS ORDERED: methylPREDNISolone Sodium Succinate 125 MG/2 ML SDV IVPUSH ONE (12:47)
[2017-07-25] MEDS ORDERED: HYDROmorphone 1 MG/ML Syringe IVPUSH ONE (13:01)
--- NOTE | 2017-07-25 13:01 | CT ---
CT neck Technique: Multiple axial sections through the neck were obtained. Study obtained from above the external auditory canal inferiorly to the lung apices. Intravenous contrast was utilized. Findings: Previous cervical spine surgery is noted with anterior plate and screws and bone graft being seen at C5-C6. Mild artifact is noted from the orthopedic hardware. There is mild soft tissue thickening seen at and inferior to the level of surgery presumably representing slight postoperative hematoma and soft tissue swelling. No fluid collections are seen at this time to indicate abscess. Visualized upper lungs are clear. Thyroid gland is normal. Parapharyngeal soft tissues are normal. Parotid and submandibular salivary glands are normal. Paranasal sinuses are clear. Impression: 1. Previous surgery at C5-C6. Mild soft tissue thickening slightly at and inferior to this surgical level most likely due to a combination of mild postoperative hematoma and soft tissue swelling. 2. No focal fluid collection is seen to indicate abscess at this time. Other normal findings as described above. Diagnostic code #2
[2017-07-25] MEDS ORDERED: Morphine 4 MG/ML Syringe IVPUSH ONE (13:08)
== END 2017-07-25 14:22 | disposition home or self-care (01) ==
LOC: JD.ED 11:23
DX: G89.18 Other acute postprocedural pain (principal); M54.2 Cervicalgia; F17.210 Nicotine dependence, cigarettes, uncomplicated; F32.9 Major depressive disorder, single episode, unspecified; Z98.890 Other specified postprocedural states; Z79.899 Other long term (current) drug therapy; Z88.0 Allergy status to penicillin; Z88.2 Allergy status to sulfonamides; Z88.5 Allergy status to narcotic agent
CPT/HCPCS: 36415; 70491; 80053; 85025; 96374; 96375; 99284; J1885; J2270; J7050; Q9967

== ENCOUNTER 2018-08-06 14:19 | Emergency (ER) | payer BC ==
--- NOTE | 2018-08-06 16:04 | EDM.PDOC ---
ED HPI GENERAL MEDICAL PROBLEM - General Chief Complaint: Chest Pain Stated Complaint: CHEST PAIN Time Seen by Provider: 08/06/18 14:49 Source of Information: Reports: Patient History Limitations: Reports: No Limitations - History of Present Illness INITIAL COMMENTS - FREE TEXT/NARRATIVE: 42yo F comes in today for epigastric pain, intermittent x 2 weeks that radiates to R arm at times. She states it fluctuates between sharp pain to dull/deep pain. She has never had pain like this before. She has tried OTC Advil, Tylenol , antacids, ice/heat w/ no relief. She is having difficulty sleeping bc laying down makes it worse. She denies any recent change in eating habits, acid reflux , anxiety, F/C, N/V/D, SOB, diaphoresis, jaw pain. She has h/o cholecystectomy 4 years ago. PCP is Ghazal Macdonald Epigastric Pain Score (Numeric/FACES): 6 - Related Data Allergies Allergy/AdvReac Type Severity Reaction Status Date / Time Penicillins Allergy Intermediate Hives Verified 08/06/18 14:32 Sulfa (Sulfonamide Allergy Intermediate Hives Verified 08/06/18 14:32 Antibiotics) hydrocodone AdvReac Chest Verified 08/06/18 14:32 Presssure Home Meds: Home Meds Cyclobenzaprine [Flexeril] 10 mg PO DAILY PRN 08/06/18 [History] Estradiol 0.5 mg PO DAILY 08/06/18 [History] Gabapentin [Neurontin] 300 mg PO DAILY 08/06/18 [History] Venlafaxine HCl [Venlafaxine ER] 75 mg PO DAILY 08/06/18 [History] Past Medical History - Past Health History Medical/Surgical History: Denies Medical/Surgical History HEENT History: Reports: Impaired Vision Other HEENT History: wears eye glasses Other Cardiovascular History: mitral valve prolapse Respiratory History: Reports: None Gastrointestinal History: Reports: Other (See Below) Other Gastrointestinal History: occassional constipation Genitourinary History: Reports: None Other Genitourinary History: hesitency of micturation, pelvic pain [employer]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, Musculoskeletal History: Reports: None Neurological History: Reports: Migraines Psychiatric History: Reports: Anxiety, Depression, Emotional Problems Endocrine/Metabolic History: Reports: None Hematologic History: Reports: None Immunologic History: Reports: None Oncologic (Cancer) History: Reports: None Dermatologic History: Reports: None - Infectious Disease History 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) - Past Surgical History Head Surgeries/Procedures: Reports: None HEENT Surgical History: Reports: Naso-Sinus Surgery Female Surgical History: Reports: Breast Implant, Hysterectomy Musculoskeletal Surgical History: Reports: Arthroscopic Knee, Other (See Below) Other Musculoskeletal Surgeries/Procedures:: ganglion cyst removed Social & Family History - Family History Family Medical History: Noncontributory Cardiac: Reports: Hypertension Neurological: Reports: Migraines - Tobacco Use Smoking Status *Q: Current Every Day Smoker Years of Tobacco use: 20 Packs/Tins Daily: 0.5 - Caffeine Use Caffeine Use: Reports: Soda, Tea - Living Situation & Occupation Living situation: Reports: , with Family ED ROS GENERAL - Review of Systems Review Of Systems: ROS reveals no pertinent complaints other than HPI. ED EXAM, GENERAL - Physical Exam Exam: See Below Exam Limited By: No Limitations General Appearance: Alert, WD/WN, Anxious Eye Exam: Bilateral Eye: EOMI, PERRL Head: Atraumatic, Normocephalic Neck: Normal Inspection, Supple, Non-Tender, Full Range of Motion Respiratory/Chest: No Respiratory Distress, Lungs Clear, Normal Breath Sounds, No Accessory Muscle Use, Chest Non-Tender Cardiovascular: Normal Peripheral Pulses, Regular Rate, Rhythm, No Edema, No Gallop, No JVD, No Murmur, No Rub GI/Abdominal: Normal Bowel Sounds, Soft, No Organomegaly, No Distention, No Abnormal Bruit, No Mass, Tender (TTP xyphoid process) Neurological: Alert, Oriented, CN II-XII Intact, Normal Cognition, Normal Gait, Normal Reflexes, No Motor/Sensory Deficits Psychiatric: Normal Affect, Anxious Skin Exam: Warm, Dry, Intact, Normal Color, No Rash Course - Vital Signs Last Recorded V/S: Last Vital Signs Temp 97.5 F 08/06/18 14:29 Pulse 81 08/06/18 14:29 Resp 18 08/06/18 14:29 BP 132/91 H 08/06/18 14:29 Pulse Ox 100 08/06/18 14:29 - Orders/Labs/Meds Orders: Active Orders 24 hr Category Date Time Status EKG Documentation Completion [RC] ASDIRECTED Care 08/06/18 14:53 Active EKG 12 Lead [EK] Stat Ther 08/06/18 14:53 Ordered - Re-Assessments/Exams Free Text/Narrative Re-Assessment/Exam: 08/06/18 14:[address] French and myself. Sinus rhythm at 83bpm. Mild ST depression V3-V6, II, III, AVF. No sign of ST elevation. 08/06/18 16:04 Physical exam benign. Pt states her xyphoid process hurts, but denies any recent trauma. No other concerning symptoms at this time. Offered Toradol, CXR and/or Abdominal Xray but pt has declined at this time. Recommend f/u with PCP if pain does not improve. Departure - Departure Time of Disposition: 16:06 Disposition: Home, Self-Care 01 Condition: Good Clinical Impression: Epigastric pain Instructions: Pain Without a Known Cause Referrals: Ghazal Macdonald, FRACISCO [Primary Care Provider] - Additional Instructions: You were seen in the ED today for epigastric pain x 2 weeks. At this time, we have been able to rule out emergency, such as Heart Attack, as your EKG looked fine. There are no other concerning symptoms at this time. If you continue to experience this pain, it is recommended you f/u with our primary care provider, Ghazal Macdonald. You were offered Chest Xray/Abdominal Xray but did not want at this time- if you change your mind, you can have them done outpatient with your primary care provider. Recommend trying your Toradol at home for pain relief. Please return to ED if new or worsening symptoms. - My Orders Last 24 Hours: My Active Orders 08/06/18 14:53 EKG Documentation Completion [RC] ASDIRECTED EKG 12 Lead [EK] Stat - Assessment/Plan Last 24 Hours: My Active Orders 08/06/18 14:53 EKG Documentation Completion [RC] ASDIRECTED EKG 12 Lead [EK] Stat
[2018-08-06 16:18] VITALS: BP 128/88
== END 2018-08-06 16:15 | disposition home or self-care (01) ==
LOC: JD.ED 14:19
DX: R10.13 Epigastric pain (principal); F17.210 Nicotine dependence, cigarettes, uncomplicated; Z88.0 Allergy status to penicillin; Z88.2 Allergy status to sulfonamides; Z88.5 Allergy status to narcotic agent; Z79.899 Other long term (current) drug therapy
CPT/HCPCS: 93005; 93010; 99284; 99284-25

== ENCOUNTER 2020-06-07 15:11 | Emergency (ER) | payer BC ==
[2020-06-07 15:24] VITALS: BP 138/87; PULSE 76
[2020-06-07] MEDS ORDERED: Dexamethasone 10 MG/ML SDV IM ONE (15:34)
[2020-06-07] MEDS ORDERED: Ketorolac 30 MG/ML SDV IM ONE (15:34)
[2020-06-07] MEDS ORDERED: Orphenadrine 100 MG Tab.ER PO ONE (15:39)
--- NOTE | 2020-06-07 15:59 | EDM.PDOC ---
ED HPI GENERAL MEDICAL PROBLEM - General Chief Complaint: Back Pain or Injury Stated Complaint: L SIDE HIP AND BACK PAIN Time Seen by Provider: 06/07/20 15:24 Source of Information: Reports: Patient, RN Notes Reviewed History Limitations: Reports: No Limitations - History of Present Illness INITIAL COMMENTS - FREE TEXT/NARRATIVE: Patient is a 44-year-old female who presents to the ED for her left hip pain. Patient notes that on 04 June, she was going upstairs from doing laundry when she noted a pain in her left lower back. She points to around her SI joint as the area that started having pain. She notes since then, it has progressed into a sharp stabbing pain that seems to be constant and worsens with movement. She states resting makes it tolerable. She has been using Advil, 600 mg at least 3 times a day, and only 1 dose this morning. A muscle relaxer, she believes to be baclofen at home, and hydrocodone/acetaminophen for pain management. She notes nothing seems to really be helping much. She denies any urinary incontinence or stool incontinence, or any saddle anesthesia. Patient notes that walking is somewhat difficult due to the pain. She denies any fever/chills, cough/shortness of breath. She denies any trauma or injury. Left Hip Pain Score (Numeric/FACES): 0 - Related Data Allergies Allergy/AdvReac Type Severity Reaction Status Date / Time Penicillins Allergy Intermediate Hives Verified 06/07/20 15:25 Sulfa (Sulfonamide Allergy Intermediate Hives Verified 06/07/20 15:25 Antibiotics) hydrocodone AdvReac Chest Verified 06/07/20 15:25 Presssure Home Meds: Home Meds Cyclobenzaprine [Flexeril] 10 mg PO DAILY PRN 08/06/18 [History] Gabapentin [Neurontin] 300 mg PO DAILY 08/06/18 [History] Venlafaxine HCl [Venlafaxine ER] 75 mg PO DAILY 08/06/18 [History] estradioL [Estradiol] 0.5 mg PO DAILY 08/06/18 [History] Orphenadrine [Norflex] 100 mg PO BID PRN #20 tab 06/07/20 [Rx] predniSONE 20 mg PO ASDIRECTED #15 tab 06/07/20 [Rx] Past Medical History - Past Health History Medical/Surgical History: Denies Medical/Surgical History HEENT History: Reports: Impaired Vision Other HEENT History: wears eye glasses Other Cardiovascular History: mitral valve prolapse Respiratory History: Reports: None Gastrointestinal History: Reports: Other (See Below) Other Gastrointestinal History: occassional constipation Genitourinary History: Reports: None Other Genitourinary History: hesitency of micturation, pelvic pain [employer]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, Musculoskeletal History: Reports: None Neurological History: Reports: Migraines Psychiatric History: Reports: Anxiety, Depression, Emotional Problems Endocrine/Metabolic History: Reports: None Hematologic History: Reports: None Immunologic History: Reports: None Oncologic (Cancer) History: Reports: None Dermatologic History: Reports: None - Infectious Disease History 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) - Past Surgical History Head Surgeries/Procedures: Reports: None HEENT Surgical History: Reports: Naso-Sinus Surgery Female Surgical History: Reports: Breast Implant, Hysterectomy Musculoskeletal Surgical History: Reports: Arthroscopic Knee, Other (See Below) Other Musculoskeletal Surgeries/Procedures:: ganglion cyst removed Social & Family History - Family History Family Medical History: No Pertinent Family History Cardiac: Reports: Hypertension Neurological: Reports: Migraines - Caffeine Use Caffeine Use: Reports: Soda, Tea - Living Situation & Occupation Living situation: Reports: , with Family ED ROS GENERAL - Review of Systems Review Of Systems: Comprehensive ROS is negative, except as noted in HPI. ED EXAM,LOWER BACK PAIN/INJURY - Physical Exam Exam: See Below Exam Limited By: No Limitations General Appearance: Alert, WD/WN, No Apparent Distress Respiratory/Chest: No Respiratory Distress, Lungs Clear, Normal Breath Sounds, No Accessory Muscle Use, Chest Non-Tender Cardiovascular: Normal Peripheral Pulses, Regular Rate, Rhythm, No Edema Extremities: Normal Inspection, Normal Capillary Refill Neurological: Alert, Normal Mood/Affect, Normal Dorsiflexion, Normal Plantar Flexion, Normal Gait (pt does however make slow deliberate movements), No Motor/Sensory Deficits, Straight Leg Raise (L). No: Straight Leg Raise (R), Saddle Anesthesia Psychiatric: Normal Affect, Normal Mood Skin Exam: Warm, Dry, Intact, Normal Color, No Rash Course - Vital Signs Last Recorded V/S: Last Vital Signs Temp 97.5 F 06/07/20 15:20 Pulse 76 06/07/20 15:20 Resp 20 06/07/20 15:20 BP 138/87 06/07/20 15:20 Pulse Ox 100 06/07/20 15:20 - Orders/Labs/Meds Meds: Medications Discontinued Medications Generic Name Dose Route Start Last Admin Trade Name Casey PRN Reason Stop Dose Admin Dexamethasone 10 mg 06/07/20 15:34 06/07/20 15:58 Decadron IM 06/07/20 15:35 10 mg ONETIME ONE Administration Ketorolac Tromethamine 30 mg 06/07/20 15:34 06/07/20 15:59 Toradol IM 06/07/20 15:35 30 mg ONETIME ONE Administration Orphenadrine Citrate 100 mg 06/07/20 15:39 06/07/20 15:58 Norflex PO 06/07/20 15:40 100 mg ONETIME ONE Administration - Re-Assessments/Exams Free Text/Narrative Re-Assessment/Exam: 06/07/20 15:38 Patient presents to the ED for her left hip/back pain. I do believe this is more SI joint dysfunction. She will get a shot of dexamethasone and Toradol for initial management. Will likely send her home with a course of prednisone and Norflex for management. 06/07/20 16:40 Patient reports pretty good relief of her pain however she notes there is still quite a bit there. We will give her 0.5mg Dilaudid and discharge her with the conservative management. Departure - Departure Time of Disposition: 16:40 Disposition: Home, Self-Care 01 Condition: Good Clinical Impression: Low back pain Qualifiers: Chronicity: acute Back pain laterality: left Sciatica presence: with sciatica Sciatica laterality: sciatica of left side Qualified Code(s): M54.42 - Lumbago with sciatica, left side - Discharge Information *PRESCRIPTION DRUG MONITORING PROGRAM REVIEWED*: No *COPY OF PRESCRIPTION DRUG MONITORING REPORT IN PATIENT GILDARDO: No Prescriptions: Orphenadrine [Norflex] 100 mg PO BID PRN #20 tab PRN Reason: Spasms predniSONE 20 mg PO ASDIRECTED #15 tab Instructions: Radicular Pain, Acute Back Pain, Adult Referrals: Ghazal Macdonald NP [Primary Care Provider] - Forms: ED Department Discharge Additional Instructions: You have been evaluated in the ED for your low back pain. You most likely have sacroiliac joint dysfunction, that is causing some radicular or nerve pain that is radiating down your leg. You were given a few different injections and a muscle relaxer in the ER, this seemed to help provide pretty good relief of your pain. The steroid injection that you received at today's visit, will start benefiting you in a roughly 4 to 6 hours. Please use ice/heat as tolerated to the affected area. Please try to elevate the affected area to relieve swelling. You were given a prescription for prednisone, and Norflex. Please take the prednisone as directed, 1 tab 2 times a day for the next 5 days and then 1 tab once a day x5 days. Norflex will be 1 tab 2 times a day for muscle relaxer purposes, do not take the muscle relaxer you already have at home if you are taking the Norflex. Please return to ED if your symptoms should change or worsen. Sepsis Event Note (ED) - Evaluation Sepsis Screening Result: No Definite Risk - Focused Exam Vital Signs: Vital Signs Temp Pulse Resp BP Pulse Ox 06/07/20 15:20 97.5 F 76 20 138/87 100
[2020-06-07] MEDS ORDERED: HYDROmorphone 0.5 MG/0.5 ML Syringe IM ONE (16:51)
== END 2020-06-07 16:59 | disposition home or self-care (01) ==
LOC: JD.ED 15:11
DX: M54.42 Lumbago with sciatica, left side (principal); F41.9 Anxiety disorder, unspecified; F32.9 Major depressive disorder, single episode, unspecified; Z88.0 Allergy status to penicillin; Z88.2 Allergy status to sulfonamides; Z88.5 Allergy status to narcotic agent; Z79.899 Other long term (current) drug therapy
CPT/HCPCS: 96372; 99283; A9270; J1100; J1170; J1885

== ENCOUNTER 2020-07-11 22:32 | Emergency (ER) | payer BC ==
[2020-07-11 22:52] VITALS: BP 133/83; PULSE 85
[2020-07-11] MEDS ORDERED: Ondansetron 4 MG/2 ML SDV IVPUSH ONE (23:03)
[2020-07-11] MEDS ORDERED: HYDROmorphone 0.5 MG/0.5 ML Syringe IVPUSH ONE (23:04)
[2020-07-11] MEDS ORDERED: Sodium Chloride 0.9% 1,000 ML IV SCH (23:15)
--- NOTE | 2020-07-11 23:15 | EDM.PDOC ---
ED HPI GENERAL MEDICAL PROBLEM - General Chief Complaint: Abdominal Pain Stated Complaint: LOWER RT ABDOMINAL PAIN Time Seen by Provider: 07/11/20 22:51 Source of Information: Reports: Patient History Limitations: Reports: No Limitations - History of Present Illness INITIAL COMMENTS - FREE TEXT/NARRATIVE: This is a 44-year-old female. She was not feeling very well last night but no significant pain until this morning she started having some right lower quadrant abdominal pain. With this pain she had some nausea but no vomiting. She thought at first she might have her chronic urinary tract infection but it has not turned out to be those kind of symptoms in the right lower quadrant abdominal pain continued to get worse. She comes to the ER this evening. She states she had a full hysterectomy and oophorectomy. She is also had her gallbladder removed but still has her appendix. She has no history of kidney stones. The pain does not seem to radiate into her back just more in the right lower quadrant area. She does have a history of endometriosis. Right Lower Abdomen Pain Score (Numeric/FACES): 8 - Related Data Allergies Allergy/AdvReac Type Severity Reaction Status Date / Time Penicillins Allergy Severe Hives Verified 07/11/20 22:52 Sulfa (Sulfonamide Allergy Severe Hives Verified 07/11/20 22:52 Antibiotics) acetaminophen [From Vicodin] AdvReac Severe Nausea Verified 07/11/20 22:52 hydrocodone [From Vicodin] AdvReac Severe Nausea Verified 07/11/20 22:52 tramadol AdvReac Severe Other Verified 07/11/20 22:52 Home Meds: Home Meds Gabapentin [Neurontin] 900 mg PO DAILY 08/06/18 [History] Venlafaxine HCl [Venlafaxine ER] 150 mg PO DAILY 08/06/18 [History] estradioL [Estradiol] 0.5 mg PO DAILY 08/06/18 [History] Acetaminophen/Codeine [Tylenol with Codeine No.3 300MG/30MG] 1 tab PO Q4H PRN 07/11/20 [History] Baclofen 1 tab PO DAILY 07/11/20 [History] Galcanezumab-Gnlm [Emgality Syringe] 120 mg SQ ASDIRECTED 07/11/20 [History] HYDROmorphone [Dilaudid] 1 supp RECTAL DAILY PRN 07/11/20 [History] LORazepam [Lorazepam] 0.5 mg PO Q12HR PRN 07/11/20 [History] Ondansetron [Ondansetron ODT] 1 tab PO Q8HR PRN 07/11/20 [History] SUMAtriptan succinate [Sumatriptan Succinate] 1 injection SQ ASDIRECTED PRN 07/11/20 [History] Past Medical History - Past Health History Medical/Surgical History: Denies Medical/Surgical History HEENT History: Reports: Impaired Vision Other HEENT History: wears eye glasses Cardiovascular History: Reports: Other (See Below) Other Cardiovascular History: hx mitral valve prolapse Respiratory History: Reports: None Gastrointestinal History: Reports: Other (See Below) Other Gastrointestinal History: occassional constipation Genitourinary History: Reports: Other (See Below) Other Genitourinary History: hesitency of micturation, pelvic pain SURFACE 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 BREATHING APPARATUS History: Reports: Endometriosis, Musculoskeletal History: Reports: None Neurological History: Reports: Migraines Psychiatric History: Reports: Anxiety, Depression, Emotional Problems Endocrine/Metabolic History: Reports: None Hematologic History: Reports: None Immunologic History: Reports: None Oncologic (Cancer) History: Reports: None Dermatologic History: Reports: None - Infectious Disease History 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) - Past Surgical History HEENT Surgical History: Reports: Naso-Sinus Surgery GI Surgical History: Reports: Cholecystectomy, Colonoscopy Female Surgical History: Reports: Breast Implant, Hysterectomy Other Female Surgeries/Procedures: laparoscopy x 23 Neurological Surgical History: Reports: Other (See Below) Other Neurological Surgeries/Procedures: botox injections for migraine Musculoskeletal Surgical History: Reports: Arthroscopic Knee, Other (See Below) Other Musculoskeletal Surgeries/Procedures:: ganglion cyst removed Social & Family History - Family History Family Medical History: No Pertinent Family History Cardiac: Reports: Hypertension Neurological: Reports: Migraines - Tobacco Use Tobacco Use Status *Q: Current Every Day Tobacco User Years of Tobacco use: 20 Packs/Tins Daily: 0.5 - Caffeine Use Caffeine Use: Reports: Soda, Tea - Recreational Drug Use Recreational Drug Use: No - Living Situation & Occupation Living situation: Reports: , with Family ED ROS GENERAL - Review of Systems Review Of Systems: See Below Constitutional: Denies: Fever, Chills HEENT: Reports: No Symptoms Respiratory: Denies: Shortness of Breath, Cough Cardiovascular: Reports: No Symptoms Endocrine: Reports: No Symptoms GI/Abdominal: Reports: Abdominal Pain, Nausea. Denies: Diarrhea, Vomiting : Denies: Dysuria, Flank Pain Musculoskeletal: Reports: No Symptoms Skin: Reports: No Symptoms Neurological: Reports: No Symptoms Psychiatric: Reports: No Symptoms Hematologic/Lymphatic: Reports: No Symptoms ED EXAM, GI/ABD - Physical Exam Exam: See Below Exam Limited By: No Limitations General Appearance: Alert, WD/WN, Mild Distress Eyes: Bilateral: Normal Appearance Ears: Normal External Exam Nose: Normal Inspection Throat/Mouth: Normal Lips, Normal Voice, No Airway Compromise Head: Normocephalic Neck: Supple Respiratory/Chest: No Respiratory Distress, Lungs Clear, Normal Breath Sounds Cardiovascular: Regular Rate, Rhythm, No Murmur GI/Abdominal Exam: Soft, Other (Bowel sounds are decreased, she is not tender in the left upper or lower abdomen on palpation and there is no referred pain in the left lower quadrant, she does not appear to have a lot of tenderness in the right upper quadrant however in the right lower quadrant she is very tender on palpation with what appears to be some mild rebound symptoms and peritonitis though it is not consistent.) Back Exam: Full Range of Motion Extremities: Normal Inspection, Normal Range of Motion Neurological: Alert, Oriented Psychiatric: Anxious Skin Exam: Warm, Dry Course - Vital Signs Last Recorded V/S: Last Vital Signs Temp 97.8 F 07/11/20 22:48 Pulse 85 07/11/20 22:48 Resp 16 07/11/20 22:48 BP 133/83 07/11/20 22:48 Pulse Ox 96 07/11/20 22:48 - Orders/Labs/Meds Orders: Active Orders 24 hr Category Date Time Status Abdomen Pelvis w Cont [CT] Stat Exams 07/11/20 23:05 Taken Sodium Chloride 0.9% [Normal Saline] 1,000 ml Med 07/11/20 23:15 Active IV ASDIRECTED Medication Orders Sodium Chloride (Normal Saline) 1,000 mls @ 500 mls/hr IV ASDIRECTED SHIVAM Last Admin: 07/11/20 23:12 Dose: 500 mls/hr Documented by: EDGAR Labs: Laboratory Tests 07/11/20 07/11/20 07/11/20 Range/Units 23:06 23:08 23:08 WBC 7.53 (3.98-10.04) K/mm3 RBC 4.07 (3.98-5.22) M/mm3 Hgb 13.5 (11.2-15.7) gm/dl Hct 40.7 (34.1-44.9) % MCV 100.0 H (79.4-94.8) fl MCH 33.2 H (25.6-32.2) pg MCHC 33.2 (32.2-35.5) g/dl RDW Std Deviation 47.0 H (36.4-46.3) fL Plt Count 176 L (182-369) K/mm3 MPV 9.3 L (9.4-12.3) fl Neut % (Auto) 40.2 (34.0-71.1) % Lymph % (Auto) 51.7 (19.3-51.7) % [place] % (Auto) 7.0 (4.7-12.5) % Eos % (Auto) 0.7 (0.7-5.8) Baso % (Auto) 0.3 (0.1-1.2) % Neut # (Auto) 3.03 (1.56-6.13) K/mm3 Lymph # (Auto) 3.89 H (1.18-3.74) K/mm3 Mcdowell # (Auto) 0.53 H (0.24-0.36) K/mm3 Eos # (Auto) 0.05 (0.04-0.36) K/mm3 Baso # (Auto) 0.02 (0.01-0.08) K/mm3 Sodium 142 (136-145) mEq/L Potassium 3.9 (3.5-5.1) mEq/L Chloride 103 (98-107) mEq/L Carbon Dioxide 32 (21-32) mEq/L Anion Gap 10.9 (5-15) BUN 7 (7-18) mg/dL Creatinine 0.9 (0.55-1.02) mg/dL Est Cr Clr Drug Dosing 67.45 mL/min Estimated GFR (MDRD) > 60 (>60) mL/min BUN/Creatinine Ratio 7.8 L (14-18) Glucose 89 (74-106) mg/dL Calcium 8.8 (8.5-10.1) mg/dL Total Bilirubin 0.3 (0.2-1.0) mg/dL AST 49 H (15-37) U/L ALT 52 (14-59) U/L Alkaline Phosphatase 95 (46-116) U/L Total Protein 6.8 (6.4-8.2) g/dl Albumin 3.7 (3.4-5.0) g/dl Globulin 3.1 gm/dL Albumin/Globulin Ratio 1.2 (1-2) Urine Color Yellow (Yellow) Urine Appearance Clear (Clear) Urine pH 7.0 (5.0-8.0) Ur Specific [place] 1.015 (1.005-1.030) Urine Protein Negative (Negative) Urine Glucose (UA) Negative (Negative) Urine Ketones Negative (Negative) Urine Occult Blood Negative (Negative) Urine Nitrite Positive H (Negative) Urine Bilirubin Negative (Negative) Urine Urobilinogen 0.2 (0.2-1.0) Ur Leukocyte Esterase Negative (Negative) Urine RBC Not seen (0-5) /hpf Urine WBC Not seen (0-5) /hpf Ur Squamous Epith Cells 0-5 (0-5) /hpf Urine Bacteria Few (FEW) /hpf Urine Mucus Rare (FEW) /hpf Meds: Medications Generic Name Dose Route Start Last Admin Trade Name Freq PRN Reason Stop Dose Admin Sodium Chloride 1,000 mls @ 500 mls/hr 07/11/20 23:15 07/11/20 23:12 Normal Saline IV 500 mls/hr ASDIRECTED SHIVAM Administration Discontinued Medications Generic Name Dose Route Start Last Admin Trade Name Freq PRN Reason Stop Dose Admin Hydromorphone HCl 0.5 mg 07/11/20 23:04 07/11/20 23:12 Dilaudid IVPUSH 07/11/20 23:05 0.5 mg ONETIME ONE Administration Ondansetron HCl 4 mg 07/11/20 23:03 07/11/20 23:12 Zofran IVPUSH 07/11/20 23:04 4 mg ONETIME ONE Administration - Radiology Interpretation Free Text/Narrative:: CT scan of the abdomen does not show an acute appendicitis in fact there is no acute abdominal or pelvic findings. - Re-Assessments/Exams Free Text/Narrative Re-Assessment/Exam: 07/12/20 01:13 I spoke with the patient regarding the CT scan of her abdomen and the negative for any pathology. This might be some endometriosis that she has had before causing her this pain. There is no evidence of kidney stones. She already has pain medication at home given to her by her primary care provider that she will use if needed. She is to follow-up with her primary care provider this coming week. I did indicate that she does not have a urinary tract infection at this time. Departure - Departure Time of Disposition: 01:14 Disposition: Home, Self-Care 01 Condition: Fair Clinical Impression: Abdominal pain Qualifiers: Abdominal location: right lower quadrant Qualified Code(s): R10.31 - Right lower quadrant pain - Discharge Information *PRESCRIPTION DRUG MONITORING PROGRAM REVIEWED*: Yes *COPY OF PRESCRIPTION DRUG MONITORING REPORT IN PATIENT GILDARDO: No Instructions: Abdominal Pain, Adult, [id number] Referrals: Ghazal Macdonald NP [Primary Care Provider] - Forms: ED Department Discharge Additional Instructions: Take your medications that you have at home for pain as needed, gentle activity over the next 24 hours follow up with your primary care provider this coming week for recheck, return to the ER if needed Sepsis Event Note (ED) - Evaluation Sepsis Screening Result: No Definite Risk - Focused Exam Vital Signs: Vital Signs Temp Pulse Resp BP Pulse Ox 07/11/20 22:48 97.8 F 85 16 133/83 96 - My Orders Last 24 Hours: My Active Orders 07/11/20 23:05 Abdomen Pelvis w Cont [CT] Stat 07/11/20 23:15 Sodium Chloride 0.9% [Normal Saline] 1,000 ml IV ASDIRECTED - Assessment/Plan Last 24 Hours: My Active Orders 07/11/20 23:05 Abdomen Pelvis w Cont [CT] Stat 07/11/20 23:15 Sodium Chloride 0.9% [Normal Saline] 1,000 ml IV ASDIRECTED
--- NOTE | 2020-07-12 10:11 | CT ---
CT abdomen and pelvis Technique: Multiple axial sections were obtained from above the dome of the diaphragm inferiorly through the pubic symphysis. Intravenous contrast not utilized. Oral contrast has been given. Comparison: Prior CT abdomen and pelvis study of 09/02/16. Findings: Visualized lung bases show nothing acute. Partially visualized left breast prosthesis is noted. Liver contains no focal abnormality. Spleen appears within normal limits in size. Adrenal glands show no nodule. Pancreas shows no discrete abnormality. Surgical clips are noted from prior cholecystectomy. Kidneys show no abnormal calcifications. No ureteral dilatation is appreciated. No ureteral calculi are seen. Bladder is slightly distended due to urine most likely relating to patient's body function. Appendix is seen which is normal. Aorta shows atherosclerotic change without aneurysm. No retroperitoneal adenopathy or mesenteric abnormalities are seen. No pelvic mass or adenopathy is seen. Mild increased stool is seen throughout the colon. Bone window settings were reviewed which show no acute osseous finding. Slight disc calcification is seen within L2-3 which is due to slight degenerative change. Impression: 1. Findings as noted above which appear to be nonacute. 2. Increased stool within the colon. 3. Nothing acute is otherwise seen. Diagnostic code #2 I agree with preliminary report from [facility], finalized on 07/12/20, 2:03 AM [employer]
== END 2020-07-12 01:27 | disposition home or self-care (01) ==
LOC: JD.ED 22:32
DX: R10.31 Right lower quadrant pain (principal); R11.0 Nausea; Z72.0 Tobacco use; Z88.0 Allergy status to penicillin; Z88.2 Allergy status to sulfonamides; Z88.6 Allergy status to analgesic agent; Z88.5 Allergy status to narcotic agent
CPT/HCPCS: 36415; 74177; 80053; 81001; 85025; 96374; 96375; 99284; J1170; J2405; J7030